=== PATIENT | male | born 1995 | race Caucasian/White ===

== ENCOUNTER 2020-10-01 13:51 | Inpatient (IN) | payer MEDICAID ==
[~2020-10-01] VITALS: Ht 167.6 cm; Wt 77.7 kg
[2020-10-01] MEDS ORDERED: DIAZEPAM 10 MG TABLET PO PRN (16:30)
[2020-10-01] MEDS ORDERED: PROMETHAZINE HCL 25 MG TABLET PO PRN (16:30)
[2020-10-01] MEDS ORDERED: MAG HYDROX/AL HYDROX/SIMETH ES 30 ML SUSPENSION UDCUP PO PRN (16:30)
[2020-10-01] MEDS ORDERED: CYANOCOBALAMIN 1,000 MCG/ML VIAL IM ONE (16:30)
[2020-10-01] MEDS ORDERED: ZOLPIDEM TARTRATE 10 MG TABLET PO PRN (16:30)
[2020-10-01] MEDS ORDERED: TUBERCULIN, PURIFIED PROTEIN DERIVATIVE 5 TU/0.1 ML SYRINGE ID ONE (16:30)
[2020-10-01] MEDS ORDERED: LOPERAMIDE HCL 2 MG CAPSULE PO PRN (16:30)
[2020-10-01] MEDS ORDERED: GuaiFENesin/D-METHORPHAN [SUGAR-FREE] 200-20MG/10 ML SYRUP UDCUP PO PRN (16:30)
[2020-10-01] MEDS ORDERED: MAGNESIUM HYDROXIDE SUSPENSION 30 ML UDCUP PO PRN (16:30)
[2020-10-01] MEDS ORDERED: OLANZapine 5 MG RAPDIS TABLET PO PRN (16:30)
[2020-10-01] MEDS ORDERED: ACETAMINOPHEN 325 MG TABLET PO PRN (16:30)
[2020-10-01] MEDS ORDERED: BACTDSB PO (20:15)
[2020-10-01] MEDS ORDERED: INFLUENZA VIRUS VACCINE QVS 2020-21 (6MO+)/PF 60 MCG/0.5 ML SYRINGE IM ONE (20:15)
[2020-10-01 20:16] VITALS: BP 135/83
[2020-10-01 21:21] VITALS: BP 135/83
[2020-10-01 22:15] VITALS: BP 107/61
[2020-10-01] MEDS: THIAMINE 100 MG TABLET PO SCH (22:49)
[2020-10-01 23:19] VITALS: BP 109/65
[2020-10-02] VITALS (10 sets, daily range): BP systolic 106–128; BP diastolic 64–78
[2020-10-02] MEDS ORDERED: DIAZEPAM 10 MG TABLET PO PRN (07:00)
[2020-10-02] MEDS: DIAZEPAM 10 MG TABLET PO SCH ×4 (09:50→20:20)
[2020-10-02] MEDS: MULTIVITAMINS WITH MINERALS, THERAPEUTIC TABLET PO SCH (09:51)
[2020-10-02] MEDS: SULFAMETHOX/TRIMETH DS 800-160 MG/TABLET PO SCH ×2 (09:51→16:50)
[2020-10-02] MEDS: FLUoxetine HCL 20 MG CAPSULE PO SCH (09:51)
[2020-10-02] MEDS: FOLIC ACID 1 MG TABLET PO SCH (09:51)
[2020-10-02] MEDS: OMEGA-3/DHA/EPA/FISH OIL 1,000 MG CAPSULE PO SCH (09:51)
[2020-10-02] MEDS: NALTREXONE HCL 50 MG TABLET PO SCH (09:51)
[2020-10-02] MEDS: THIAMINE 100 MG TABLET PO SCH ×2 (09:51→16:51)
[2020-10-02] MEDS: OLANZapine 5 MG RAPDIS TABLET PO SCH (20:20)
[2020-10-03 06:03] VITALS: BP 122/64
[2020-10-03] MEDS: FLUoxetine HCL 20 MG CAPSULE PO SCH (08:59)
[2020-10-03] MEDS: NALTREXONE HCL 50 MG TABLET PO SCH (08:59)
[2020-10-03] MEDS: THIAMINE 100 MG TABLET PO SCH ×2 (09:00→16:56)
[2020-10-03] MEDS: MULTIVITAMINS WITH MINERALS, THERAPEUTIC TABLET PO SCH (09:00)
[2020-10-03] MEDS: SULFAMETHOX/TRIMETH DS 800-160 MG/TABLET PO SCH ×2 (09:00→16:56)
[2020-10-03] MEDS: OMEGA-3/DHA/EPA/FISH OIL 1,000 MG CAPSULE PO SCH (09:00)
[2020-10-03] MEDS: DIAZEPAM 10 MG TABLET PO SCH ×4 (09:00→20:57)
[2020-10-03] MEDS: FOLIC ACID 1 MG TABLET PO SCH (09:00)
[2020-10-03 09:26] VITALS: BP 128/67
[2020-10-03 10:47] VITALS: BP 115/69
[2020-10-03 16:02] VITALS: BP 122/70
[2020-10-03] MEDS: OLANZapine 5 MG RAPDIS TABLET PO SCH (20:59)
[2020-10-04 06:53] VITALS: BP 125/72
[2020-10-04] MEDS ORDERED: DIAZEPAM 5 MG TABLET PO PRN (07:00)
[2020-10-04 08:08] VITALS: BP 121/67
[2020-10-04] MEDS: MULTIVITAMINS WITH MINERALS, THERAPEUTIC TABLET PO SCH (10:21)
[2020-10-04] MEDS: THIAMINE 100 MG TABLET PO SCH ×2 (10:21→16:57)
[2020-10-04] MEDS: FLUoxetine HCL 20 MG CAPSULE PO SCH (10:21)
[2020-10-04] MEDS: SULFAMETHOX/TRIMETH DS 800-160 MG/TABLET PO SCH ×2 (10:21→16:57)
[2020-10-04] MEDS: OMEGA-3/DHA/EPA/FISH OIL 1,000 MG CAPSULE PO SCH (10:21)
[2020-10-04] MEDS: FOLIC ACID 1 MG TABLET PO SCH (10:21)
[2020-10-04] MEDS: NALTREXONE HCL 50 MG TABLET PO SCH (10:21)
[2020-10-04] MEDS: DIAZEPAM 5 MG TABLET PO SCH ×4 (10:22→20:37)
[2020-10-04 14:14] VITALS: BP 130/70
[2020-10-04 16:09] VITALS: BP 127/78
[2020-10-04] MEDS ORDERED: LOPERAMIDE HCL 2 MG CAPSULE PO PRN (16:30)
[2020-10-04] MEDS: HydrOXYzine PAMOATE 50 MG CAPSULE PO PRN (16:57)
[2020-10-04] MEDS: OLANZapine 5 MG RAPDIS TABLET PO SCH (20:37)
[2020-10-05 02:14] VITALS: BP 129/82
[2020-10-05 06:09] VITALS: BP 124/80
[2020-10-05] MEDS ORDERED: DIAZEPAM 5 MG TABLET PO PRN (07:00)
[2020-10-05] MEDS: OMEGA-3/DHA/EPA/FISH OIL 1,000 MG CAPSULE PO SCH (08:58)
[2020-10-05] MEDS: SULFAMETHOX/TRIMETH DS 800-160 MG/TABLET PO SCH ×2 (08:58→16:33)
[2020-10-05] MEDS: NALTREXONE HCL 50 MG TABLET PO SCH (08:58)
[2020-10-05] MEDS: THIAMINE 100 MG TABLET PO SCH ×2 (08:58→16:33)
[2020-10-05] MEDS: FOLIC ACID 1 MG TABLET PO SCH (09:13)
[2020-10-05] MEDS: MULTIVITAMINS WITH MINERALS, THERAPEUTIC TABLET PO SCH (09:13)
[2020-10-05] MEDS: FLUoxetine HCL 20 MG CAPSULE PO SCH (09:13)
[2020-10-05] MEDS ORDERED: FLUO-191 PO (15:24)
[2020-10-05] MEDS ORDERED: OLAN10TA22 PO (15:24)
[2020-10-05] MEDS ORDERED: NALT50TA PO (15:24)
[2020-10-05] MEDS ORDERED: OMEG-135 PO (15:24)
[2020-10-05 16:10] VITALS: BP 104/71
[2020-10-05 16:15] VITALS: BP 104/70
[2020-10-05] MEDS: HydrOXYzine PAMOATE 50 MG CAPSULE PO PRN (16:33)
[2020-10-05] MEDS ORDERED: OLANZapine 10 MG RAPDIS TABLET PO SCH (21:00)
[2020-10-06 04:05] VITALS: BP 123/7
[2020-10-06 05:09] VITALS: BP 111/67
[2020-10-06 08:23] VITALS: BP 124/61
[2020-10-06] MEDS ORDERED: FLUoxetine HCL 20 MG CAPSULE PO SCH (09:00)
[2020-10-06] MEDS: THIAMINE 100 MG TABLET PO SCH (09:16)
[2020-10-06] MEDS: SULFAMETHOX/TRIMETH DS 800-160 MG/TABLET PO SCH (09:16)
[2020-10-06] MEDS: MULTIVITAMINS WITH MINERALS, THERAPEUTIC TABLET PO SCH (09:16)
[2020-10-06] MEDS: OMEGA-3/DHA/EPA/FISH OIL 1,000 MG CAPSULE PO SCH (09:16)
[2020-10-06] MEDS: NALTREXONE HCL 50 MG TABLET PO SCH (09:17)
[2020-10-06] MEDS: FOLIC ACID 1 MG TABLET PO SCH (09:17)
== END 2020-10-06 13:00 | disposition home or self-care (01) | DRG 750 ==
LOC: B3A 20:11
PROVIDERS: ADMIT Psychiatry & Neurology Psychiatry; ATTEND Psychiatry & Neurology Psychiatry
DX: F25.0 Schizoaffective disorder, bipolar type (principal); F17.210 Nicotine dependence, cigarettes, uncomplicated; F10.10 Alcohol abuse, uncomplicated; Z55.9 Problems related to education and literacy, unspecified; Z59.9 Problem related to housing and economic circumstances, unspecified; Z79.899 Other long term (current) drug therapy
CPT/HCPCS: 90686; 90749; G0008; Z7610

== ENCOUNTER 2020-10-09 04:11 | Inpatient (IN) | payer MEDICAID ==
[~2020-10-09] VITALS: Ht 167.6 cm; Wt 77.1 kg
[~2020-10-09 04:11] MED LIST: FLUO-191 PO; NALT50TA PO; OLAN10TA22 PO; OMEG-135 PO
[2020-10-09] MEDS ORDERED: ZOLPIDEM TARTRATE 10 MG TABLET PO PRN (06:00)
[2020-10-09] MEDS ORDERED: OLANZapine 5 MG RAPDIS TABLET PO PRN (06:00)
[2020-10-09 06:54] VITALS: BP 146/95
[2020-10-09 08:23] VITALS: BP 120/47
[2020-10-09] MEDS: LORazepam 2 MG TABLET PO PRN (09:23)
[2020-10-09] MEDS ORDERED: LOPERAMIDE HCL 2 MG CAPSULE PO PRN (12:15)
[2020-10-09] MEDS ORDERED: HydrOXYzine PAMOATE 50 MG CAPSULE PO PRN (12:15)
[2020-10-09] MEDS ORDERED: PROMETHAZINE HCL 25 MG TABLET PO PRN (12:15)
[2020-10-09] MEDS ORDERED: CYANOCOBALAMIN 1,000 MCG/ML VIAL IM ONE (12:15)
[2020-10-09] MEDS ORDERED: TUBERCULIN, PURIFIED PROTEIN DERIVATIVE 5 TU/0.1 ML SYRINGE ID ONE (12:15)
[2020-10-09] MEDS ORDERED: QUEtiapine FUMARATE 100 MG TABLET PO PRN (12:15)
[2020-10-09] MEDS ORDERED: ACETAMINOPHEN 325 MG TABLET PO PRN (12:15)
[2020-10-09] MEDS ORDERED: MAG HYDROX/AL HYDROX/SIMETH ES 30 ML SUSPENSION UDCUP PO PRN (12:15)
[2020-10-09] MEDS ORDERED: MAGNESIUM HYDROXIDE SUSPENSION 30 ML UDCUP PO PRN (12:15)
[2020-10-09] MEDS ORDERED: GuaiFENesin/D-METHORPHAN [SUGAR-FREE] 200-20MG/10 ML SYRUP UDCUP PO PRN (12:15)
[2020-10-09 16:13] VITALS: BP 125/73
[2020-10-09] MEDS: THIAMINE 100 MG TABLET PO SCH (17:52)
[2020-10-09] MEDS ORDERED: MIRTAZAPINE 15 MG TABLET PO SCH (21:00)
[2020-10-09] MEDS: QUEtiapine FUMARATE 200 MG TABLET PO SCH (22:08)
[2020-10-10 06:15] VITALS: BP 129/73
[2020-10-10 07:41] LABS: BASOPHILS % (AUTO) 0.1 % (0.0-2.0); EOSINOPHILS % (AUTO) 2.2 % (1.0-6.0); HEMATOCRIT 46.2 % (41-53); HEMOGLOBIN 15.4 g/dL (13.5-17.5); LYMPHOCYTES % (AUTO) 15.1 % (22.0-44.0); MEAN CORPUSCULAR HGB CONC 33.4 G/dL (31.0-37.0); MEAN CORPUSCULAR VOLUME 93 fL (80-100); MONOCYTES # (AUTO) 1.2 K/uL (0.1-1.0); MONOCYTES % (AUTO) 8.7 % (2.0-9.0); NEUTROPHILS # (AUTO) 9.8 K/uL (1.8-7.7); NEUTROPHILS % (AUTO) 73.9 % (40.0-70.0); PLATELET COUNT (AUTO) 228 K/uL (150-450); RED BLOOD CELL COUNT(AUTO) 4.97 MIL/uL (4.50-5.90); RED CELL DISTRIBUTION WIDTH 13.8 % (11.5-14.5)
[2020-10-10 07:48] LABS: HEMOGLOBIN A1C 5.2 % (3.8-5.6)
[2020-10-10 08:22] LABS: ALANINE AMINOTRANSFERASE 243 U/L (12-78); ALBUMIN 3.6 g/dL (3.4-5.0); ALKALINE PHOSPHATASE 114 U/L (46-116); ANION GAP 7 mmol/L (8-16); ASPARTATE AMINOTRANSFERASE 134 U/L (15-37); BILIRUBIN,TOTAL 0.4 mg/dL (0.1-1.0); CALCIUM, TOTAL 8.6 mg/dL (8.8-10.5); CARBON DIOXIDE 29 mmol/L (22-29); CHLORIDE 104 mmol/L (98-107); CHOL/HDL RATIO 2.8 (4.2-7.3); CHOLESTEROL 140 mg/dL (131-200); CREATININE 1.05 mg/dL (0.60-1.30); FREE T4 (FREE THYROXINE) 1.09 ng/dL (0.76-1.46); GLOMERULAR FILTR. RATE CALC > 60 mL/min (>60); GLUCOSE,RANDOM 75 mg/dL (70-110); HDL CHOLESTEROL 50 mg/dL (40-60); LDL CHOL (CALC.) 75 mg/dL (0-130); POTASSIUM 4.2 mmol/L (3.5-5.1); SODIUM SERUM 140 mmol/L (136-145); THYROID STIMULATING HORMONE 2.46 uIU/mL (0.36-3.74); TOTAL PROTEIN, SERUM 7.1 g/dL (6.4-8.2); TRIGLYCERIDES 74 mg/dL (15-150); UREA NITROGEN, BLOOD 15 mg/dL (7-18)
[2020-10-10 08:27] VITALS: BP 141/84
[2020-10-10] MEDS: ATOMOXETINE HCL 40 MG CAPSULE PO SCH (10:27)
[2020-10-10] MEDS: FOLIC ACID 1 MG TABLET PO SCH (10:28)
[2020-10-10] MEDS: BuPROPion HCL XL 150 MG ER TABLET PO SCH (10:28)
[2020-10-10] MEDS: MULTIVITAMINS WITH MINERALS, THERAPEUTIC TABLET PO SCH (10:28)
[2020-10-10] MEDS: THIAMINE 100 MG TABLET PO SCH ×2 (10:28→17:07)
[2020-10-10 16:18] VITALS: BP 100/79
[2020-10-10] MEDS: LORazepam 2 MG TABLET PO PRN (17:07)
[2020-10-10] MEDS: QUEtiapine FUMARATE 200 MG TABLET PO SCH (20:42)
[2020-10-11 06:16] VITALS: BP 112/77
[2020-10-11 07:15] LABS: BASOPHILS % (AUTO) 0.2 % (0.0-2.0); EOSINOPHILS % (AUTO) 3.1 % (1.0-6.0); HEMATOCRIT 44.9 % (41-53); HEMOGLOBIN 15.1 g/dL (13.5-17.5); LYMPHOCYTES # (AUTO) 1.9 K/uL (1.0-4.8); LYMPHOCYTES % (AUTO) 18.9 % (22.0-44.0); MEAN CORPUSCULAR HGB CONC 33.6 G/dL (31.0-37.0); MEAN CORPUSCULAR VOLUME 92 fL (80-100); MONOCYTES # (AUTO) 0.9 K/uL (0.1-1.0); MONOCYTES % (AUTO) 8.9 % (2.0-9.0); NEUTROPHILS # (AUTO) 6.8 K/uL (1.8-7.7); NEUTROPHILS % (AUTO) 68.9 % (40.0-70.0); PLATELET COUNT (AUTO) 212 K/uL (150-450); RED BLOOD CELL COUNT(AUTO) 4.87 MIL/uL (4.50-5.90); RED CELL DISTRIBUTION WIDTH 13.7 % (11.5-14.5)
[2020-10-11 08:23] VITALS: BP 105/63
[2020-10-11] MEDS: MULTIVITAMINS WITH MINERALS, THERAPEUTIC TABLET PO SCH (09:44)
[2020-10-11] MEDS: FOLIC ACID 1 MG TABLET PO SCH (09:44)
[2020-10-11] MEDS: THIAMINE 100 MG TABLET PO SCH ×2 (09:44→17:11)
[2020-10-11] MEDS: ATOMOXETINE HCL 40 MG CAPSULE PO SCH (09:44)
[2020-10-11] MEDS: BuPROPion HCL XL 150 MG ER TABLET PO SCH (09:44)
[2020-10-11 16:50] VITALS: BP 101/72
[2020-10-11] MEDS: QUEtiapine FUMARATE 200 MG TABLET PO SCH (20:33)
[2020-10-12 06:20] VITALS: BP 104/60
[2020-10-12] MEDS: FOLIC ACID 1 MG TABLET PO SCH (08:39)
[2020-10-12] MEDS: MULTIVITAMINS WITH MINERALS, THERAPEUTIC TABLET PO SCH (08:39)
[2020-10-12] MEDS: THIAMINE 100 MG TABLET PO SCH (08:39)
[2020-10-12] MEDS: BuPROPion HCL XL 150 MG ER TABLET PO SCH (08:40)
[2020-10-12] MEDS: ATOMOXETINE HCL 40 MG CAPSULE PO SCH (08:40)
[2020-10-12 08:46] VITALS: BP 106/66
[2020-10-12] MEDS ORDERED: OMEG-135 PO (14:30)
[2020-10-12] MEDS ORDERED: NALT50TA6 PO (14:30)
[2020-10-12] MEDS ORDERED: BUPR-47 PO (14:30)
[2020-10-12] MEDS ORDERED: ATOM40CA9 PO ×2 (14:30→14:39)
[2020-10-12] MEDS ORDERED: MELA5TAB3 PO (14:30)
[2020-10-12] MEDS ORDERED: QUET200T29 PO (14:30)
[2020-10-12] MEDS ORDERED: QUET200T PO (14:39)
[2020-10-12] MEDS ORDERED: BUPR-93 PO (14:40)
[2020-10-12 16:13] VITALS: BP 126/72
== END 2020-10-12 16:41 | disposition home or self-care (01) | DRG 750 ==
LOC: B3A 06:13 → B2S 10-10 06:42
PROVIDERS: ADMIT Psychiatry & Neurology Psychiatry; ATTEND Psychiatry & Neurology Psychiatry
DX: F25.1 Schizoaffective disorder, depressive type (principal); R45.851 Suicidal ideations; Z91.14 Patient's other noncompliance with medication regimen; F17.210 Nicotine dependence, cigarettes, uncomplicated; F31.81 Bipolar II disorder; F41.9 Anxiety disorder, unspecified
CPT/HCPCS: 80074; 83036; 84439; 84443; 87081; J3420

== ENCOUNTER 2020-10-13 15:11 | Inpatient (IN) | payer MEDICAID ==
[~2020-10-13] VITALS: Ht 167.6 cm; Wt 76.8 kg
[~2020-10-13 15:11] MED LIST changes: +ATOM40CA9 PO; +BUPR-47 PO; +BUPR-93 PO; -FLUO-191 PO; -NALT50TA PO; -OLAN10TA22 PO; -OMEG-135 PO; +QUET200T PO; +QUET200T29 PO
[2020-10-13] MEDS ORDERED: OLANZapine 5 MG RAPDIS TABLET PO PRN (16:30)
[2020-10-13] MEDS ORDERED: ACETAMINOPHEN 325 MG TABLET PO PRN (16:30)
[2020-10-13] MEDS ORDERED: PALIPERIDONE PALMITATE 234 MG/1.5 ML SYRINGE IM ONE (16:30)
[2020-10-13] MEDS ORDERED: MAG HYDROX/AL HYDROX/SIMETH ES 30 ML SUSPENSION UDCUP PO PRN (16:30)
[2020-10-13] MEDS ORDERED: MAGNESIUM HYDROXIDE SUSPENSION 30 ML UDCUP PO PRN (16:30)
[2020-10-13] MEDS ORDERED: HydrOXYzine PAMOATE 50 MG CAPSULE PO PRN (16:30)
[2020-10-13] MEDS ORDERED: CYANOCOBALAMIN 1,000 MCG/ML VIAL IM ONE (16:30)
[2020-10-13] MEDS ORDERED: GuaiFENesin/D-METHORPHAN [SUGAR-FREE] 200-20MG/10 ML SYRUP UDCUP PO PRN (16:30)
[2020-10-13] MEDS ORDERED: ZOLPIDEM TARTRATE 10 MG TABLET PO PRN (16:30)
[2020-10-13] MEDS ORDERED: LOPERAMIDE HCL 2 MG CAPSULE PO PRN (16:30)
[2020-10-13] MEDS ORDERED: PROMETHAZINE HCL 25 MG TABLET PO PRN (16:30)
[2020-10-13 19:51] VITALS: BP 151/95
[2020-10-13] MEDS: THIAMINE 100 MG TABLET PO SCH (20:57)
[2020-10-13] MEDS ORDERED: OLANZapine 5 MG RAPDIS TABLET PO SCH (21:00)
[2020-10-13] MEDS: MELATONIN 5 MG TABLET PO SCH (21:22)
[2020-10-14 05:39] VITALS: BP 120/78
[2020-10-14] MEDS: FOLIC ACID 1 MG TABLET PO SCH (08:42)
[2020-10-14] MEDS: OMEGA-3/DHA/EPA/FISH OIL 1,000 MG CAPSULE PO SCH (08:42)
[2020-10-14] MEDS: NALTREXONE HCL 50 MG TABLET PO SCH (08:42)
[2020-10-14] MEDS: MULTIVITAMINS WITH MINERALS, THERAPEUTIC TABLET PO SCH (08:42)
[2020-10-14] MEDS: THIAMINE 100 MG TABLET PO SCH ×2 (08:42→16:43)
[2020-10-14] MEDS: FLUoxetine HCL 20 MG CAPSULE PO SCH (08:42)
[2020-10-14] MEDS: ATOMOXETINE HCL 40 MG CAPSULE PO SCH (08:43)
[2020-10-14] MEDS: LORazepam 2 MG TABLET PO PRN ×2 (08:47→16:44)
[2020-10-14 16:01] VITALS: BP 129/65
[2020-10-14] MEDS ORDERED: QUEtiapine FUMARATE 100 MG TABLET PO PRN (17:00)
[2020-10-14] MEDS: MELATONIN 5 MG TABLET PO SCH (20:22)
[2020-10-14] MEDS ORDERED: QUEtiapine FUMARATE 200 MG TABLET PO SCH (21:00)
[2020-10-15 05:50] VITALS: BP 121/72
[2020-10-15] MEDS: FOLIC ACID 1 MG TABLET PO SCH (09:07)
[2020-10-15] MEDS: OMEGA-3/DHA/EPA/FISH OIL 1,000 MG CAPSULE PO SCH (09:07)
[2020-10-15] MEDS: ATOMOXETINE HCL 40 MG CAPSULE PO SCH (09:07)
[2020-10-15] MEDS: THIAMINE 100 MG TABLET PO SCH ×2 (09:07→16:38)
[2020-10-15] MEDS: NALTREXONE HCL 50 MG TABLET PO SCH (09:08)
[2020-10-15] MEDS: MULTIVITAMINS WITH MINERALS, THERAPEUTIC TABLET PO SCH (09:08)
[2020-10-15] MEDS: FLUoxetine HCL 20 MG CAPSULE PO SCH (09:08)
[2020-10-15 12:27] VITALS: BP 120/70
[2020-10-15 16:11] VITALS: BP 100/63
[2020-10-15] MEDS: LORazepam 2 MG TABLET PO PRN (16:38)
[2020-10-15] MEDS: MELATONIN 5 MG TABLET PO SCH (20:27)
[2020-10-15] MEDS: QUEtiapine FUMARATE 200 MG TABLET PO SCH (20:27)
[2020-10-16 06:59] VITALS: BP 123/78
[2020-10-16] MEDS: ATOMOXETINE HCL 40 MG CAPSULE PO SCH (08:04)
[2020-10-16] MEDS: FOLIC ACID 1 MG TABLET PO SCH (08:04)
[2020-10-16] MEDS: THIAMINE 100 MG TABLET PO SCH ×2 (08:04→16:40)
[2020-10-16] MEDS: OMEGA-3/DHA/EPA/FISH OIL 1,000 MG CAPSULE PO SCH (08:04)
[2020-10-16] MEDS: MULTIVITAMINS WITH MINERALS, THERAPEUTIC TABLET PO SCH (08:05)
[2020-10-16] MEDS: NALTREXONE HCL 50 MG TABLET PO SCH (08:05)
[2020-10-16] MEDS: FLUoxetine HCL 20 MG CAPSULE PO SCH (08:05)
[2020-10-16 16:09] VITALS: BP 112/64
[2020-10-16] MEDS: LORazepam 2 MG TABLET PO PRN (16:40)
[2020-10-16] MEDS: QUEtiapine FUMARATE 200 MG TABLET PO SCH (20:48)
[2020-10-16] MEDS: MELATONIN 5 MG TABLET PO SCH (20:48)
[2020-10-17 01:11] VITALS: BP 124/79
[2020-10-17] MEDS ORDERED: ATOM60CA7 PO (03:47)
[2020-10-17] MEDS ORDERED: QUET200T PO (03:48)
[2020-10-17] MEDS ORDERED: FLUO-191 PO (03:48)
[2020-10-17 08:01] VITALS: BP 110/63
[2020-10-17] MEDS: FLUoxetine HCL 20 MG CAPSULE PO SCH (08:20)
[2020-10-17] MEDS: FOLIC ACID 1 MG TABLET PO SCH (08:21)
[2020-10-17] MEDS: OMEGA-3/DHA/EPA/FISH OIL 1,000 MG CAPSULE PO SCH (08:21)
[2020-10-17] MEDS: THIAMINE 100 MG TABLET PO SCH (08:21)
[2020-10-17] MEDS: NALTREXONE HCL 50 MG TABLET PO SCH (08:21)
[2020-10-17] MEDS: MULTIVITAMINS WITH MINERALS, THERAPEUTIC TABLET PO SCH (08:21)
[2020-10-17] MEDS ORDERED: PALIPERIDONE PALMITATE 156 MG/ML SYRINGE IM ONE (09:00)
[2020-10-17] MEDS ORDERED: ATOMOXETINE HCL 60 MG CAPSULE PO SCH (09:00)
== END 2020-10-17 09:20 | disposition home or self-care (01) | DRG 750 ==
LOC: B3A 19:16
PROVIDERS: ADMIT Psychiatry & Neurology Psychiatry; ATTEND Psychiatry & Neurology Psychiatry
DX: F25.1 Schizoaffective disorder, depressive type (principal); Z91.19 Patient's noncompliance with other medical treatment and regimen; F17.210 Nicotine dependence, cigarettes, uncomplicated
CPT/HCPCS: 87081

== ENCOUNTER 2020-10-20 18:42 | Inpatient (IN) | payer MEDICAID ==
[~2020-10-20] VITALS: Ht 167.6 cm; Wt 74.9 kg
[~2020-10-20 18:42] MED LIST changes: -ATOM40CA9 PO; +ATOM60CA7 PO; -BUPR-47 PO; -BUPR-93 PO; +FLUO-191 PO; -QUET200T29 PO
[2020-10-20] MEDS ORDERED: OLANZapine 5 MG RAPDIS TABLET PO PRN (19:15)
[2020-10-20] MEDS ORDERED: MAG HYDROX/AL HYDROX/SIMETH ES 30 ML SUSPENSION UDCUP PO PRN (19:15)
[2020-10-20] MEDS ORDERED: PROMETHAZINE HCL 25 MG TABLET PO PRN (19:15)
[2020-10-20] MEDS ORDERED: LOPERAMIDE HCL 2 MG CAPSULE PO PRN (19:15)
[2020-10-20] MEDS ORDERED: GuaiFENesin/D-METHORPHAN [SUGAR-FREE] 200-20MG/10 ML SYRUP UDCUP PO PRN (19:15)
[2020-10-20] MEDS ORDERED: ACETAMINOPHEN 325 MG TABLET PO PRN (19:15)
[2020-10-20] MEDS ORDERED: HydrOXYzine PAMOATE 50 MG CAPSULE PO PRN (19:15)
[2020-10-20] MEDS ORDERED: MAGNESIUM HYDROXIDE SUSPENSION 30 ML UDCUP PO PRN (19:15)
[2020-10-20] MEDS ORDERED: ZOLPIDEM TARTRATE 10 MG TABLET PO PRN (19:15)
[2020-10-20] MEDS ORDERED: ADDE10 PO (20:50)
[2020-10-20] MEDS ORDERED: OLANZapine 5 MG RAPDIS TABLET PO SCH (21:00)
[2020-10-21] VITALS (11 sets, daily range): BP systolic 60–117; BP diastolic 60–91
[2020-10-21] MEDS: MULTIVITAMINS WITH MINERALS, THERAPEUTIC TABLET PO SCH (08:24)
[2020-10-21] MEDS: THIAMINE 100 MG TABLET PO SCH ×2 (08:25→16:30)
[2020-10-21] MEDS: FLUoxetine HCL 20 MG CAPSULE PO SCH (08:25)
[2020-10-21] MEDS: OMEGA-3/DHA/EPA/FISH OIL 1,000 MG CAPSULE PO SCH (08:25)
[2020-10-21] MEDS: FOLIC ACID 1 MG TABLET PO SCH (08:25)
[2020-10-21] MEDS ORDERED: ATOMOXETINE HCL 60 MG CAPSULE PO SCH (09:00)
[2020-10-21] MEDS: MELATONIN 5 MG TABLET PO SCH (20:37)
[2020-10-22 00:30] VITALS: BP 102/63
[2020-10-22 04:30] VITALS: BP 130/67
[2020-10-22 08:15] VITALS: BP 117/70
[2020-10-22] MEDS: ATOMOXETINE HCL 40 MG CAPSULE PO SCH (08:48)
[2020-10-22] MEDS: MULTIVITAMINS WITH MINERALS, THERAPEUTIC TABLET PO SCH (08:49)
[2020-10-22] MEDS: FOLIC ACID 1 MG TABLET PO SCH (08:49)
[2020-10-22] MEDS: OMEGA-3/DHA/EPA/FISH OIL 1,000 MG CAPSULE PO SCH (08:49)
[2020-10-22] MEDS: THIAMINE 100 MG TABLET PO SCH ×2 (08:49→16:48)
[2020-10-22] MEDS: FLUoxetine HCL 20 MG CAPSULE PO SCH (08:49)
[2020-10-22 16:30] VITALS: BP 111/60
[2020-10-22] MEDS: LORazepam 2 MG TABLET PO PRN (16:56)
[2020-10-22] MEDS: OLANZapine 10 MG RAPDIS TABLET PO SCH (20:31)
[2020-10-22] MEDS: MELATONIN 5 MG TABLET PO SCH (20:32)
[2020-10-23 06:10] VITALS: BP 116/68
[2020-10-23 08:18] VITALS: BP 108/65
[2020-10-23] MEDS: ATOMOXETINE HCL 40 MG CAPSULE PO SCH (08:39)
[2020-10-23] MEDS: FOLIC ACID 1 MG TABLET PO SCH (08:39)
[2020-10-23] MEDS: THIAMINE 100 MG TABLET PO SCH ×2 (08:39→16:32)
[2020-10-23] MEDS: FLUoxetine HCL 20 MG CAPSULE PO SCH (08:40)
[2020-10-23] MEDS: MULTIVITAMINS WITH MINERALS, THERAPEUTIC TABLET PO SCH (08:40)
[2020-10-23] MEDS: OMEGA-3/DHA/EPA/FISH OIL 1,000 MG CAPSULE PO SCH (08:40)
[2020-10-23 16:37] VITALS: BP 101/61
[2020-10-23] MEDS: LORazepam 2 MG TABLET PO PRN (16:41)
[2020-10-23] MEDS: MELATONIN 5 MG TABLET PO SCH (20:21)
[2020-10-23] MEDS: OLANZapine 10 MG RAPDIS TABLET PO SCH (20:22)
[2020-10-24 00:57] VITALS: BP 102/64
[2020-10-24] MEDS: THIAMINE 100 MG TABLET PO SCH ×2 (08:34→16:15)
[2020-10-24] MEDS: OMEGA-3/DHA/EPA/FISH OIL 1,000 MG CAPSULE PO SCH (08:34)
[2020-10-24] MEDS: FLUoxetine HCL 20 MG CAPSULE PO SCH (08:34)
[2020-10-24] MEDS: FOLIC ACID 1 MG TABLET PO SCH (08:35)
[2020-10-24] MEDS: MULTIVITAMINS WITH MINERALS, THERAPEUTIC TABLET PO SCH (08:35)
[2020-10-24] MEDS: ATOMOXETINE HCL 40 MG CAPSULE PO SCH (08:35)
[2020-10-24] MEDS: ATOMOXETINE HCL 60 MG CAPSULE PO SCH (08:35)
[2020-10-24 16:38] VITALS: BP 106/61
[2020-10-24] MEDS: MELATONIN 5 MG TABLET PO SCH (20:33)
[2020-10-24] MEDS: OLANZapine 10 MG RAPDIS TABLET PO SCH (20:33)
[2020-10-25 05:59] VITALS: BP 119/65
[2020-10-25] MEDS: ATOMOXETINE HCL 60 MG CAPSULE PO SCH (08:36)
[2020-10-25] MEDS: OMEGA-3/DHA/EPA/FISH OIL 1,000 MG CAPSULE PO SCH (08:36)
[2020-10-25] MEDS: ATOMOXETINE HCL 40 MG CAPSULE PO SCH (08:36)
[2020-10-25] MEDS: FLUoxetine HCL 20 MG CAPSULE PO SCH (08:36)
[2020-10-25] MEDS: MULTIVITAMINS WITH MINERALS, THERAPEUTIC TABLET PO SCH (08:36)
[2020-10-25] MEDS: FOLIC ACID 1 MG TABLET PO SCH (08:36)
[2020-10-25] MEDS: THIAMINE 100 MG TABLET PO SCH ×2 (08:36→16:44)
[2020-10-25 08:46] VITALS: BP 107/66
[2020-10-25 16:22] VITALS: BP 108/67
[2020-10-25] MEDS: LORazepam 2 MG TABLET PO PRN (16:44)
[2020-10-25] MEDS: OLANZapine 10 MG RAPDIS TABLET PO SCH (20:12)
[2020-10-25] MEDS: MELATONIN 5 MG TABLET PO SCH (20:12)
[2020-10-26 04:22] VITALS: BP 108/64
[2020-10-26] MEDS: ATOMOXETINE HCL 40 MG CAPSULE PO SCH (09:08)
[2020-10-26] MEDS: FOLIC ACID 1 MG TABLET PO SCH (09:08)
[2020-10-26] MEDS: ATOMOXETINE HCL 60 MG CAPSULE PO SCH (09:08)
[2020-10-26] MEDS: OMEGA-3/DHA/EPA/FISH OIL 1,000 MG CAPSULE PO SCH (09:08)
[2020-10-26] MEDS: FLUoxetine HCL 20 MG CAPSULE PO SCH (09:08)
[2020-10-26] MEDS: MULTIVITAMINS WITH MINERALS, THERAPEUTIC TABLET PO SCH (09:08)
[2020-10-26] MEDS: THIAMINE 100 MG TABLET PO SCH ×2 (09:08→16:05)
[2020-10-26 13:28] LABS: COVID AG,FIA SOURCE NASAL SWAB
[2020-10-26 15:20] VITALS: BP 99/56
[2020-10-26 16:32] VITALS: BP 121/64
[2020-10-26] MEDS: MELATONIN 5 MG TABLET PO SCH (20:09)
[2020-10-26] MEDS: OLANZapine 10 MG RAPDIS TABLET PO SCH (20:10)
[2020-10-27 00:37] VITALS: BP 111/66
[2020-10-27 08:25] VITALS: BP 139/72
[2020-10-27] MEDS: MULTIVITAMINS WITH MINERALS, THERAPEUTIC TABLET PO SCH (08:34)
[2020-10-27] MEDS: OMEGA-3/DHA/EPA/FISH OIL 1,000 MG CAPSULE PO SCH (08:34)
[2020-10-27] MEDS: FLUoxetine HCL 20 MG CAPSULE PO SCH (08:34)
[2020-10-27] MEDS: THIAMINE 100 MG TABLET PO SCH ×2 (08:34→16:40)
[2020-10-27] MEDS: ATOMOXETINE HCL 40 MG CAPSULE PO SCH (08:34)
[2020-10-27] MEDS: FOLIC ACID 1 MG TABLET PO SCH (08:34)
[2020-10-27] MEDS: ATOMOXETINE HCL 60 MG CAPSULE PO SCH (08:34)
[2020-10-27 16:13] VITALS: BP 106/66
[2020-10-27] MEDS ORDERED: NALT50TA PO (16:47)
[2020-10-27] MEDS ORDERED: OLAN10TA22 PO (16:47)
[2020-10-27] MEDS ORDERED: OMEG-135 PO (16:47)
[2020-10-27] MEDS ORDERED: FLUO-191 PO (16:47)
[2020-10-27] MEDS ORDERED: MELA5TAB3 PO (16:47)
[2020-10-27] MEDS ORDERED: ATOM60CA7 PO (16:47)
[2020-10-27] MEDS: LORazepam 2 MG TABLET PO PRN (16:50)
[2020-10-27] MEDS: OLANZapine 10 MG RAPDIS TABLET PO SCH (22:29)
[2020-10-27] MEDS: MELATONIN 5 MG TABLET PO SCH (22:37)
[2020-10-28 00:40] VITALS: BP 102/68
[2020-10-28] MEDS: FLUoxetine HCL 20 MG CAPSULE PO SCH (08:20)
[2020-10-28] MEDS: MULTIVITAMINS WITH MINERALS, THERAPEUTIC TABLET PO SCH (08:20)
[2020-10-28] MEDS: FOLIC ACID 1 MG TABLET PO SCH (08:20)
[2020-10-28] MEDS: OMEGA-3/DHA/EPA/FISH OIL 1,000 MG CAPSULE PO SCH (08:20)
[2020-10-28] MEDS: ATOMOXETINE HCL 40 MG CAPSULE PO SCH (08:59)
[2020-10-28] MEDS: THIAMINE 100 MG TABLET PO SCH (08:59)
[2020-10-28] MEDS: ATOMOXETINE HCL 60 MG CAPSULE PO SCH (08:59)
[2020-10-28] MEDS ORDERED: NALTREXONE HCL 50 MG TABLET PO SCH (09:00)
[2020-10-28 09:38] VITALS: BP 120/85
== END 2020-10-28 09:50 | disposition home or self-care (01) | DRG 750 ==
LOC: B2S 20:43
PROVIDERS: ADMIT Psychiatry & Neurology Psychiatry; ATTEND Psychiatry & Neurology Psychiatry
DX: F25.0 Schizoaffective disorder, bipolar type (principal); Z59.0 Homelessness; F90.9 Attention-deficit hyperactivity disorder, unspecified type; F17.210 Nicotine dependence, cigarettes, uncomplicated; F11.90 Opioid use, unspecified, uncomplicated; F14.90 Cocaine use, unspecified, uncomplicated; B19.20 Unspecified viral hepatitis C without hepatic coma; F32.9 Major depressive disorder, single episode, unspecified; F41.9 Anxiety disorder, unspecified; T40.1X2A Poisoning by heroin, intentional self-harm, initial encounter; T40.7X2A Poisoning by cannabis (derivatives), intentional self-harm, initial encounter; Y92.89 Other specified places as the place of occurrence of the external cause; Z20.822 Contact with and (suspected) exposure to COVID-19
CPT/HCPCS: 87081; 87426; A9575; Z7610

== ENCOUNTER 2020-10-20 20:19 | Emergency (ER) | payer MEDICAID, OTHER ==
[~2020-10-20] VITALS: Ht 167.6 cm; Wt 68.2 kg
[2020-10-20] MEDS ORDERED: ADDE10 PO (20:50)
[2020-10-20] MEDS ORDERED: QUEtiapine FUMARATE 100 MG TABLET PO ONE (21:15)
[2020-10-20] MEDS ORDERED: LORazepam 2 MG TABLET PO ONE (21:15)
[2020-10-20 21:24] LABS: BASOPHILS % (AUTO) 0.3 % (0.0-2.0); HEMATOCRIT 42.1 % (41-53); HEMOGLOBIN 14.1 g/dL (13.5-17.5); LYMPHOCYTES # (AUTO) 1.4 K/uL (1.0-4.8); LYMPHOCYTES % (AUTO) 18.5 % (22.0-44.0); MEAN CORPUSCULAR HEMOGLOBIN 30.8 pg (26.0-34.0); MEAN CORPUSCULAR HGB CONC 33.4 G/dL (31.0-37.0); MEAN CORPUSCULAR VOLUME 92 fL (80-100); MONOCYTES # (AUTO) 0.9 K/uL (0.1-1.0); MONOCYTES % (AUTO) 10.9 % (2.0-9.0); NEUTROPHILS # (AUTO) 5.3 K/uL (1.8-7.7); NEUTROPHILS % (AUTO) 68.3 % (40.0-70.0); PLATELET COUNT (AUTO) 252 K/uL (150-450); RED BLOOD CELL COUNT(AUTO) 4.56 MIL/uL (4.50-5.90)
[2020-10-20 21:37] LABS: ANION GAP 6 mmol/L (8-16); CALCIUM, TOTAL 9.5 mg/dL (8.8-10.5); CARBON DIOXIDE 30 mmol/L (22-29); CHLORIDE 105 mmol/L (98-107); CREATININE 1.06 mg/dL (0.60-1.30); GLOMERULAR FILTR. RATE CALC > 60 mL/min (>60); GLUCOSE,RANDOM 129 mg/dL (70-110); POTASSIUM 4.1 mmol/L (3.5-5.1); SODIUM SERUM 141 mmol/L (136-145); UREA NITROGEN, BLOOD 15 mg/dL (7-18)
[2020-10-20 21:43] LABS: ALANINE AMINOTRANSFERASE 925 U/L (12-78); ALBUMIN 3.9 g/dL (3.4-5.0); ALKALINE PHOSPHATASE 150 U/L (46-116); ASPARTATE AMINOTRANSFERASE 630 U/L (15-37); BILIRUBIN,TOTAL 0.6 mg/dL (0.1-1.0); TOTAL PROTEIN, SERUM 7.7 g/dL (6.4-8.2)
[2020-10-20 21:55] LABS: COVID AG,FIA SOURCE NASOPHARYNGEAL
[2020-10-20 22:13] LABS: AMPHET/METH SCREEN,URINE POSITIVE (NEGATIVE); BARBITURATE SCREEN, URINE NEGATIVE (NEGATIVE); BENZODIAZEPINES SCREEN,URINE POSITIVE (NEGATIVE); CANNABINOID SCREEN,URINE POSITIVE (NEGATIVE); COCAINE SCREEN,URINE NEGATIVE (NEGATIVE); METHADONE SCREEN, URINE NEGATIVE (NEGATIVE); OPIATE SCREEN,URINE POSITIVE (NEGATIVE)
[2020-10-20 22:14] LABS: PHENCYCLIDINE SCREEN,URINE NEGATIVE (NEGATIVE)
[2020-10-20 23:00] VITALS: BP 125/71
== END 2020-10-21 00:53 | disposition home or self-care (01) ==
LOC: EMS 20:19
DX: F31.9 Bipolar disorder, unspecified (principal); B19.20 Unspecified viral hepatitis C without hepatic coma; F15.10 Other stimulant abuse, uncomplicated; F11.10 Opioid abuse, uncomplicated; R79.89 Other specified abnormal findings of blood chemistry; F17.210 Nicotine dependence, cigarettes, uncomplicated; Z20.822 Contact with and (suspected) exposure to COVID-19
CPT/HCPCS: 36415; 80053; 80307; 85025; 87426; 99284; G0480